=== PATIENT | female | born 1985 | race Caucasian/White ===

== ENCOUNTER 2019-08-07 22:04 | Emergency (ER) | END 2019-08-08 00:31 | disposition home or self-care (01) | DX: J20.9 Acute bronchitis, unspecified (principal); L02.211 Cutaneous abscess of abdominal wall; J45.909 Unspecified asthma, uncomplicated; F32.9 Major depressive disorder, single episode, unspecified; F15.10 Other stimulant abuse, uncomplicated; Z88.1 Allergy status to other antibiotic agents; Z79.1 Long term (current) use of non-steroidal anti-inflammatories (NSAID); Z79.899 Other long term (current) drug therapy | CPT/HCPCS: 36415; 71045; 80048; 80076; 83605; 84484; 85025; 85730; 87040 ×2; 87400; 87521; 96374; 99284; J1100 ==